=== PATIENT | male | born 1945 | race Caucasian/White ===

== ENCOUNTER 2016-10-25 09:21 | Emergency (ER) | payer MEDICARE, BC ==
[2016-10-25] MEDS ORDERED: ASPIRIN 81 MG TAB.CHEW ONE (09:38)
[2016-10-25] MEDS ORDERED: NITROGLYCERIN 0.4 MG/TAB BTL SL ONE ×2 (09:38→09:47)
[2016-10-25] MEDS ORDERED: ASPIRIN 81 MG TAB.CHEW PO ONE (09:39)
[2016-10-25 09:43] LABS: Hematocrit 50.9 % (42.0-52.0); Hemoglobin 17.4 gm/dL (13.5-18.0); Mean Cell Volume 86.7 fl (78-100); Mean Corpuscular Hemoglobin 29.6 pg (27-31); Mean Corpuscular Hgb Conc 34.2 g/dl (32-36); Mean Platelet Volume 9.1 fl (6.0-9.5); Neutrophil # 4.5 K/mm3 (1.3-6.0); Neutrophil % 63.2 % (42-75.0); Platelet Count 152 K/mm3 (150-450); Red Blood Count 5.87 M/mm3 (4.7-6.0); White Blood Count 7.2 K/mm3 (4.0-10.5)
[2016-10-25 09:54] LABS: Prothrombin Time (Patient) 10.1 Seconds (9.4-11.4)
[2016-10-25 09:57] LABS: INR 0.97 INR (0.90-1.10); Partial Thrombolplastin Time 24.9 Seconds (24-32)
[2016-10-25 10:02] LABS: ALT 29 U/L (19-67); AST 18 U/L (0-48); Albumin * 3.4 gm/dl (3.4-5.0); Alkaline Phosphatase * 93 U/L (50-170); Anion Gap 11.8 mmol/L (6.8-13.8); BUN/Creatinine Ratio 15.9 (9.0-21.6); Bilirubin, Total 0.3 mg/dL (0.0-1.1); Blood Urea Nitrogen 18 mg/dL (6-23); Ca. Corrected For Albumin 8.7 mg/dL (8.4-10.2); Calcium * 8.5 mg/dL (7.9-10.9); Carbon Dioxide 29.4 mmol/L (24-32.6); Chloride 102 mmol/L (97-106); Glucose * 231 mg/dL (70-110); Potassium 4.2 mmol/L (3.4-4.6); Sodium 139 mmol/L (132-142); Total Protein 6.8 gm/dL (6.2-8.2)
[2016-10-25 10:03] LABS: Troponin I Less than 0.017 ng/ml (0.00-0.10)
--- NOTE | 2016-10-25 10:44 | ERNOTE ---
Chest Pain/Cardiac HPI Chief Complaint: Chest Pain Time Seen by Provider: 10/25/16 10:27 Source: patient Exam Limitations: no limitations Immunizations: IMMUNIZATION HX Immunizations Up to Date No: unsure History of Influenza Vaccine No Hx Pneumococcal Vaccination No Allergies/Adverse Reactions: Allergies Iodinated Contrast Media - Oral and [Iodinated Contrast Media - IV Dye] Allergy (Intermediate, Verified 10/25/16 09:41) TROUBLE BREATHING atorvastatin calcium [From Lipitor] Adverse Reaction (Mild, Verified 10/25/16 09 :41) BONE PAIN Home Medications: HOME MEDICATIONS Escitalopram Oxalate [Lexapro] 10 mg PO DAILY 11/20/12 [Last Taken Unknown] Nebivolol HCl [Bystolic] 5 mg PO DAILY 11/20/12 [Last Taken 03/06/16 5mg] Rosuvastatin Calcium [Crestor] 5 mg PO DAILY 11/20/12 [Last Taken Unknown] Albuterol Sulfate [Proair Hfa] 2 puff IH Q4H PRN 03/06/16 [Last Taken Unknown] Nitroglycerin [Nitrostat] 0.4 mg SL [id number] PRN 03/06/16 [Last Taken Unknown] Omeprazole Magnesium [Prilosec Otc] 20 - 40 mg PO DAILY 03/06/16 [Last Taken Unknown] Narrative: Patient has a history of CAD, had two [place] and had two stents placed by Dr Mcmanus, the last on two years ago. Over the last 10 days he has had intermittent chest pain with activity that has been increasing in frequency, central pressure like pain, no radiation. The pain reminds him of his heart attacks (minus the nausea and diaphoresis). On arrival in the ER the pain was 2/ 10, resolved after nitro, no chest pain now. Timing: intermittent Severity/Quality: moderate, pressure Location: central Chest Pain Radiation: no radiation Activities at Onset: activity Aspirin Treatment Today: provided by ED Review of Systems - Review of Systems Constitutional: Absent: recent illness, fever ENT: Present: nose congestion. Absent: sore throat Respiratory: Absent: shortness of breath Cardiology: Present: See HPI, chest pain Gastrointestinal/Abdominal: Absent: nausea, vomiting, abdominal pain Genitourinary: Present: no symptoms reported Musculoskeletal: Present: no symptoms reported Skin: Absent: rash Neurological: Absent: headache - Patient's Past Medical History Patient History - Medical: Diabetes Type 2, Depression, GERD Patient History - Cardiac/Respiratory: COPD, Hypertension, Hyperlipidemia, Myocardial Infarction, Sleep Apnea Patient History - Cancer: No Hx of Cancer Patient History - Surgical Procedures: Colonoscopy, Cardiac stent Patient History - Other: None - Family History Father Family History - Medical: , Alcohol Abuse Family History - Cardiac/Respiratory: Myocardial Infarction Mother Family History - Medical: , No pertinent hx Family History - Cardiac/Respiratory: Aneurysm Brother Family History - Medical: , No pertinent hx Family History - Cardiac/Respiratory: Coronary Heart Disease, CVA/Stroke, Myocardial Infarction, Pneumonia - Social History Living Situations: home Abuse History: No History of abuse Psych History: No pertinent hx Does anyone smoke in the home?: Yes Smoking Status: Current every day smoker Alcohol Use: rarely Drug Use: none - Immunizations Immunizations Up to Date: No - unsure Hx Pneumococcal Vaccination: No History of Influenza Vaccine: No Physical Exam - Physical Exam General Appearance: Present: wd/wn, alert, no apparent distress Ears, Nose, Throat: Present: normal pharynx Respiratory: Present: no respiratory distress, no accessory muscle use, chest nontender, lungs clear, decreased breath sounds Cardiovascular/Chest: Present: regular rate, rhythm, no murmur Gastrointestinal/Abdominal: Present: normal bowel sounds, nontender, nondistended, soft Extremity Exam: Present: no edema Neurological Exam: Present: alert, oriented, normal mood/affect Skin Exam: Present: normal color, warm/dry ED Progress - Results and Orders Patient's Lab Results:: I have reviewed the patient's lab results. - Vital Signs Patient's Vital Signs:: I have reviewed the patient's vital signs. Vital Signs: Vital Signs 10/25/16 10/25/16 10/25/16 09:28 09:43 09:49 Temperature 36.6 C Pulse Rate 63 63 63 Respiratory 14 21 H Rate Blood Pressure 168/90 149/82 O2 Sat by Pulse 100 100 Oximetry 10/25/16 09:56 Temperature 36.6 C Pulse Rate 64 Respiratory 21 H Rate Blood Pressure 132/72 O2 Sat by Pulse 99 Oximetry - EKG EKG: NSR, other - no acute changes EKG read: Interp. by me - X-Ray X-Ray #1 X-Ray: chest - no focal findings Interpretation: Reviewed by me - Progress/Reassessment Chief Complaint: Chest Pain Progress Note-Subjective: 10/25/16 11:23 discussed results with patient and family, offered transfer to [facility] for continuity of care, explained that he might get charged with part of the ambulance fee as [facility] is closer and has a label folder, the alternative would be transfer to [facility], or refusing ambulance transfer and being transferred by private car Patient decided on transfer to [facility], has not chest pain currently 10/25/16 11:23 call to [facility], discussed with Dr Porter (ERP) accepted patient for transfer to ER Departure - Departure Clinical Impression: Crescendo angina Disposition: [facility] Condition: Good
--- OUTSIDE RECORDS SUMMARY | 2016-10-25 10:48 | XMS REPORT | Continuity of Care Document ---
:1945 Author Organization [facility] ([facility]) Address [address] [place] [address] Phone [phone] Care Team Providers Name Role Phone Unavailable Primary Care Provider Unavailable Source Comments This disclosure is being made pursuant to the Care Everywhere program, applicable federal and state laws, and may not contain all informaitonavailable regarding this patient.[facility] ([facility]) Active Allergies and Adverse Reactions Not on File Current Medications Not on file Active Problems Not on file Social History Tobacco Use Types Packs/Day Years Used Date Never Assessed Plan of Care Health Maintenance Due Date Last Done Comments HCV Screening 1945 Hepatitis B Vaccine (1 of 3 - Primary Series) 1945 Tdap Vaccine 01/26/1956 Lipid Disorder Screening 1963 Td Vaccine 1963 Colonoscopy 1995 Prostate Cancer Screening 1995 Zoster Vaccine 2005 Pneumococcal Vaccine (1 of 2 - PCV13) 2010 Influenza Vaccine: Seasonal (#1) 02/20/2016 Results from Last 3 Months Not on file
[2016-10-25 12:13] VITALS: BP 151/77
== END 2016-10-25 12:15 | disposition short-term general hospital (02) ==
LOC: ER 09:21
DX: I20.0 Unstable angina (principal); F17.210 Nicotine dependence, cigarettes, uncomplicated; I10 Essential (primary) hypertension; E78.5 Hyperlipidemia, unspecified; K21.9 Gastro-esophageal reflux disease without esophagitis; J44.9 Chronic obstructive pulmonary disease, unspecified; F32.9 Major depressive disorder, single episode, unspecified; Z95.5 Presence of coronary angioplasty implant and graft

== ENCOUNTER 2016-12-20 08:44 | Emergency (ER) | payer MEDICARE, BC ==
--- NOTE | 2016-12-20 09:05 | ERNOTE ---
Abdominal HPI - Narrative Date of Service: 12/20/16 - General Chief Complaint: Abdominal Pain Source: patient Exam Limitations: no limitations - Immun/Allergies/Home Medications Immunizatons: IMMUNIZATION HX Immunizations Up to Date No: unsure History of Influenza Vaccine No Hx Pneumococcal Vaccination No Allergies/Adverse Reactions: Allergies Iodinated Contrast Media - Oral and [Iodinated Contrast Media - IV Dye] Allergy (Intermediate, Verified 12/20/16 08:53) TROUBLE BREATHING atorvastatin calcium [From Lipitor] Adverse Reaction (Mild, Verified 12/20/16 08 :53) BONE PAIN Home Medications: HOME MEDICATIONS Escitalopram Oxalate [Lexapro] 10 mg PO DAILY 11/20/12 [Last Taken Unknown] Nebivolol HCl [Bystolic] 5 mg PO DAILY 11/20/12 [Last Taken 03/06/16 5mg] Rosuvastatin Calcium [Crestor] 5 mg PO DAILY 11/20/12 [Last Taken Unknown] Albuterol Sulfate [Proair Hfa] 2 puff IH Q4H PRN 03/06/16 [Last Taken Unknown] Nitroglycerin [Nitrostat] 0.4 mg SL [id number] PRN 03/06/16 [Last Taken Unknown] Aspirin/Calcium Carbonate/Mag [Aspirin Buffered 325 mg Tab] 325 mg PO DAILY 08/07 [Last Taken Unknown] Clopidogrel Bisulfate [Plavix] 75 mg PO DAILY 12/20/16 [Last Taken Unknown] Fexofenadine HCl [Brit Allergy] 180 mg PO DAILY 12/20/16 [Last Taken Unknown] Fluticasone Furoate [Flonase Sensimist] 9.9 ml NS BID 12/20/16 [Last Taken Unknown] Glimepiride [Amaryl] 2 mg PO DAILY 12/20/16 [Last Taken Unknown] HYDROcodone/ACETAMINOPHEN [[place] 5-325] 1 each PO QID PRN #12 tablet 12/20/16 [ Last Taken Unknown] Pantoprazole Sodium 20 mg PO DAILY 12/20/16 [Last Taken Unknown] - History of Present Illness Narrative: pt comes in for severe pain in the umbilical region for two days. no nausea or vomiting. he has been coughing and noted a mass and tenderness in his umbilical region and thought it was a tick. Denies dysuria. pt also states that for the past month he walks then after 20 feet he feels pain in the lumbar region. When he stops the pain goes away. this has been going on for one month but he has not seen anyone for it. Review of Systems - Review of Systems Constitutional: Present: no symptoms reported EYE: Present: no symptoms reported ENT: Present: no symptoms reported Respiratory: Present: cough. Absent: wheezing, stridor Cardiology: Present: no symptoms reported Gastrointestinal/Abdominal: Present: See HPI Genitourinary: Present: See HPI Musculoskeletal: Present: other - pain in low back when walking Skin: Present: no symptoms reported Neurological: Present: other - pain in low back when walking - Patient's Past Medical History Patient History - Medical: Diabetes Type 2, Depression, GERD Patient History - Cardiac/Respiratory: COPD, Hypertension, Hyperlipidemia, Myocardial Infarction, Sleep Apnea Patient History - Cancer: No Hx of Cancer Patient History - Surgical Procedures: Colonoscopy, Cardiac stent Patient History - Other: None - Family History Father Family History - Medical: , Alcohol Abuse Family History - Cardiac/Respiratory: Myocardial Infarction Mother Family History - Medical: , No pertinent hx Family History - Cardiac/Respiratory: Aneurysm Brother Family History - Medical: , No pertinent hx Family History - Cardiac/Respiratory: Coronary Heart Disease, CVA/Stroke, Myocardial Infarction, Pneumonia - Social History Living Situations: home Abuse History: No History of abuse Psych History: No pertinent hx Does anyone smoke in the home?: Yes Smoking Status: Current every day smoker Have you smoked in the past 12 months: Yes Alcohol Use: rarely Drug Use: none - Immunizations Immunizations Up to Date: No - unsure Hx Pneumococcal Vaccination: No History of Influenza Vaccine: No Physical Exam - Physical Exam General Appearance: Present: wd/wn, alert, no apparent distress Ears, Nose, Throat: Present: normal ENT inspection Neck: Present: normal inspection, nontender, supple Respiratory: Present: no respiratory distress, normal breath sounds, chest nontender, lungs clear Cardiovascular/Chest: Present: regular rate, rhythm, no murmur Gastrointestinal/Abdominal: Present: normal bowel sounds, soft, other - pt has a very tender umbilical mass. Back Exam: Present: normal inspection Extremity Exam: Present: normal inspection, normal range of motion ED Progress - Results and Orders Patient's Lab Results:: I have reviewed the patient's lab results. - Vital Signs Patient's Vital Signs:: I have reviewed the patient's vital signs. Vital Signs: Vital Signs 12/20/16 08:50 Temperature 36.8 C Pulse Rate 70 Respiratory 14 Rate Blood Pressure 146/75 O2 Sat by Pulse 95 Oximetry - X-Ray X-Ray #1 X-Ray: chest - CT/Ultrasound CT/Ultrasound Narrative: ordered and reviewed - Progress/Reassessment Chief Complaint: Abdominal Pain Plan - Plan Plan: This patient has a ventral hernia with mesenteric fat. Dr. Drew was consulted and presented to bedside. This patient also has DJD of lumbar spine and will be treated for pain and he needs to go follow up with his PCP for back pain and poorly diagnosed diabetes. Dr. Drew is aware of the hernia and has addressed it. pt does have a viral cough and will be given a cough syrup. his DJD will also be treated with Ibuprofen 800 and he needs to follow up with PCP Departure - Departure Clinical Impression: Back pain Qualifiers: Back pain location: low back pain Chronicity: unspecified Back pain laterality : bilateral Sciatica presence: with sciatica Sciatica laterality: sciatica laterality unspecified Qualified Code(s): M54.40 - Lumbago with sciatica, unspecified side Umbilical hernia without mention of obstruction or gangrene Qualifiers: Obstruction and gangrene presence: without obstruction or gangrene Qualified Code(s): K42.9 - Umbilical hernia without obstruction or gangrene Disposition: Home self-care Condition: Fair Instructions: Arthritis Referrals: Cynthia Lyman MD [Primary Care Provider] - Prescriptions: HYDROcodone/ACETAMINOPHEN [[place] 5-325] 1 each PO QID PRN #12 tablet PRN Reason: Pain
[2016-12-20 09:27] LABS: Hematocrit 45.3 % (42.0-52.0); Hemoglobin 15.3 gm/dL (13.5-18.0); Mean Cell Volume 87.3 fl (78-100); Mean Corpuscular Hemoglobin 29.5 pg (27-31); Mean Corpuscular Hgb Conc 33.8 g/dl (32-36); Mean Platelet Volume 9.1 fl (6.0-9.5); Platelet Count 175 K/mm3 (150-450); Red Blood Count 5.19 M/mm3 (4.7-6.0); Red Cell Distribution Width 12.8 % (11.5-14.0); White Blood Count 6.5 K/mm3 (4.0-10.5)
[2016-12-20] MEDS ORDERED: DIATRIZOATE MEGLUMINE, SODIUM 30 ML BTL PO ONE (09:31)
[2016-12-20 09:36] LABS: Albumin * 3.2 gm/dl (3.4-5.0); Bilirubin, Total 0.3 mg/dL (0.0-1.1); Ca. Corrected For Albumin 9.6 mg/dL (8.4-10.2); Calcium * 9.3 mg/dL (7.9-10.9); Potassium 4.3 mmol/L (3.4-4.6); Total Protein 6.6 gm/dL (6.2-8.2)
[2016-12-20 09:39] LABS: Anion Gap 11.8 mmol/L (6.8-13.8); Carbon Dioxide 27.5 mmol/L (24-32.6)
[2016-12-20 09:41] LABS: Urine Bilirubin Negative (NEGATIVE); Urine Blood Negative /ul (NEGATIVE); Urine Ketone Negative (NEGATIVE); Urine Nitrite Negative (NEGATIVE); Urine Protein Negative (NEGATIVE); Urine Specific Gravity 1.025 SP.GR. (1.005-1.030); Urine Urobilinogen Normal (NORMAL)
--- OUTSIDE RECORDS SUMMARY | 2016-12-20 09:43 | XMS REPORT | Continuity of Care Document ---
:1945 Author Organization [facility] ([facility]) Address [address] [place] [address] Phone [phone] Care Team Providers Name Role Phone Unavailable Primary Care Provider Unavailable Source Comments This disclosure is being made pursuant to the Care Everywhere program, applicable federal and state laws, and may not contain all informaitonavailable regarding this patient.[facility] ([facility]) Active Allergies and Adverse Reactions Not [...]
[2016-12-20 09:50] LABS: Urine Appearance Clear; Urine Color Yellow
[2016-12-20 09:51] LABS: Urine RBC None Seen /hpf (0-5); Urine WBC None Seen /hpf (0-5)
[2016-12-20 09:52] LABS: Urine Bacteria None Seen
[2016-12-20 10:49] LABS: Hemoglobin A1C 8.4 % (4.00-6.0)
[2016-12-20 12:28] VITALS: BP 142/78
--- NOTE | 2016-12-20 13:08 | CONS ---
[facility] - General Date of Service: 12/20/16 Source: patient, RN/MD, RN notes reviewed, old records Exam Limitations: no limitations - History of Present Illness Initial Comments: He has had a tender umbilical bulge for several days associated with a cough. No problem with his bowels. Also has some pain in hips and back with ambulation relieved by rest. Severity: moderate Modifying Factors - (Worsens): Reports: other - cough and touching umbilicus Modifying Factors - (Improves): Reports: rest Associated Symptoms: cough, other - hip and back pain with ambulation Allergies/Adverse Reactions: Allergies Iodinated Contrast Media - Oral and [Iodinated Contrast Media - IV Dye] Allergy (Intermediate, Verified 12/20/16 08:53) TROUBLE BREATHING atorvastatin calcium [From Lipitor] Adverse Reaction (Mild, Verified 12/20/16 08 :53) BONE PAIN Home Medications: Home Medications Medication Instructions Recorded Last Taken Escitalopram Oxalate [Lexapro] 10 mg PO DAILY 11/20/12 Unknown Nebivolol HCl [Bystolic] 5 mg PO DAILY 11/20/12 03/06/16 5mg Rosuvastatin Calcium [Crestor] 5 mg PO DAILY 11/20/12 Unknown Albuterol Sulfate [Proair Hfa] 2 puff IH Q4H PRN 03/06/16 Unknown Nitroglycerin [Nitrostat] 0.4 mg SL [id number] PRN 03/06/16 Unknown Aspirin/Calcium Carbonate/Mag 325 mg PO DAILY 12/20/16 Unknown [Aspirin Buffered 325 mg Tab] Clopidogrel Bisulfate [Plavix] 75 mg PO DAILY 12/20/16 Unknown Fexofenadine HCl [Brit Allergy] 180 mg PO DAILY 12/20/16 Unknown Fluticasone Furoate [Flonase 9.9 ml NS BID 12/20/16 Unknown Sensimist] Glimepiride [Amaryl] 2 mg PO DAILY 12/20/16 Unknown Pantoprazole Sodium 20 mg PO DAILY 12/20/16 Unknown - Patient's Past Medical History Patient History - Medical: Diabetes Type 2, Depression, GERD Patient History - Cardiac/Respiratory: COPD, Hypertension, Hyperlipidemia, Myocardial Infarction, Sleep Apnea Patient History - Cancer: No Hx of Cancer Patient History - Surgical Procedures: Colonoscopy, Cardiac stent Additional Info: Had diverticulosis on colonoscopy Patient History - Other: None - Family History Father Family History - Medical: , Alcohol Abuse Family History - Cardiac/Respiratory: Myocardial Infarction Mother Family History - Medical: , No pertinent hx Family History - Cardiac/Respiratory: Aneurysm Brother Family History - Medical: , No pertinent hx Family History - Cardiac/Respiratory: Coronary Heart Disease, CVA/Stroke, Myocardial Infarction, Pneumonia - Social History Living Situations: home Abuse History: No History of abuse Psych History: No pertinent hx Does anyone smoke in the home?: Yes Smoking Status: Current every day smoker Have you smoked in the past 12 months: Yes Alcohol Use: rarely Drug Use: none - Immunizations Immunizations Up to Date: No - unsure Hx Pneumococcal Vaccination: No History of Influenza Vaccine: No Procedures CLOSURE SKIN & SUBCUTANEOUS NEC (11/23/10) COLONOSCOPY (11/24/12) EXCISION OF STOMACH, ENDO, DIAGN (03/07/16) INJECT/INFUSE THROMBOLYTIC AGENT (08/25/03) OTHER LOCAL DESTRUC SKIN (03/09/05) Review of Systems - Review of Systems Generalized/Overall Review: Absent: Chills, Fever EENTM: Present: No Symptoms Reported Respiratory: Present: Cough Abdominal: Present: Other - Tender mass at umbilicus Genitourinary: Present: No Symptoms Reported Musculoskeletal: Present: Other - pain in back and hips with ambulation Neurological: Present: No Symptoms Reported Skin: Present: No Symptoms Reported Physical Examination - Exam Vital Signs: Vital Signs - Last Taken Temp 36.6 C 12/20/16 12:20 Pulse 71 12/20/16 12:20 Resp 16 12/20/16 12:20 BP 142/78 12/20/16 12:20 Pulse Ox 99 12/20/16 12:20 O2 Oxygen Delivery Method Room Air Constitutional: Present: Alert, Oriented x3 Eye Exam: bilateral eye: normal inspection Neck: Present: full range of motion, normal inspection Respiratory: Present: crackles Cardiovascular/Chest: Present: regular rate, rhythm Abdomen: Present: soft, obese, other - incarcerated 1.5 cm properitoneal fat containing umbilical hernia--small defect /Rectal: Present: Exam deferred Extremity: Present: normal range of motion, normal inspection Skin Exam: Present: other - plethoric 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, no motor/sensory deficits Appearance: Present: appropriate appearance, appropriate insight Eye contact: Present: cooperative, good eye contact, normal speech Thoughts: Present: normal thought pattern - Results and Findings: Lab/Microbiology results last 24 hrs: Abnormal/Pending Laboratory Last 24 HRS 12/20/16 12/20/16 12/20/16 09:34 09:17 09:17 Eosinophils % Basophils % BUN/Creatinine Ratio 22.0 H Random Glucose 220 H Hemoglobin A1c 8.4 H Albumin 3.2 L Urine Glucose (UA) >=1000 H 12/20/16 09:17 Eosinophils % 5.3 H Basophils % 1.1 H BUN/Creatinine Ratio Random Glucose Hemoglobin A1c Albumin Urine Glucose (UA) - Assessments/Findings (1) Umbilical hernia without mention of obstruction or gangrene Diagnosis(s): Probably contains properitoneal fat only. Would not pose health risk or require urgent repair. Would recommend CT to document that and evaluate vessels with possible claudication history. Problem: Acute Qualifiers: Obstruction and gangrene presence: without obstruction or gangrene Qualified Code(s): K42.9 - Umbilical hernia without obstruction or gangrene
== END 2016-12-20 12:45 | disposition home or self-care (01) ==
LOC: ER 08:44
DX: M54.40 Lumbago with sciatica, unspecified side (principal); K42.9 Umbilical hernia without obstruction or gangrene; Z72.0 Tobacco use; I25.2 Old myocardial infarction; E11.9 Type 2 diabetes mellitus without complications; I10 Essential (primary) hypertension; E78.5 Hyperlipidemia, unspecified